=== PATIENT | male | born 1990 | race Caucasian/White ===

== ENCOUNTER 2020-03-16 12:21 | Emergency (ER) | payer OTHER, SELFPAY ==
[2020-03-16 12:22] VITALS: BP 142/83; PULSE 81; RESP 16; TEMP 37.2; O2SAT 99; BMI 25.2
--- NOTE | 2020-03-16 12:42 | EKG12_ITS ---
Test Reason : Blood Pressure : / mmHG Vent. Rate : 070 BPM Atrial Rate : 070 BPM P-R Int : 128 ms QRS Dur : 088 ms QT Int : 380 ms P-R-T Axes : 049 066 048 degrees QTc Int : 410 ms Normal sinus rhythm with sinus arrhythmia Normal ECG Confirmed by ALEC ESPAÑA, MAY ([id number]), newspaper photo editor RUIZ BOLTON ([id number]) on 03/20/2020 10:59:29 AM Referred By: GABBIE Confirmed By:MAY MICHAEL MD
[2020-03-16 12:49] VITALS: BP 121/78; PULSE 84; RESP 19; TEMP 37.2; O2SAT 97
[2020-03-16] MEDS: 0.9% Normal Saline 1,000 ML 1000 ML IV (12:56)
[2020-03-16 13:03] LABS: Absolute Lymphocyte Count 1.44 X10^3/uL (0.83-4.51); Basophil# 0.03 X10^3/uL; Basophil% 0.6 % (0-1); Eosinophil# 0.07 X10^3/uL; Eosinophils% 1.4 % (0-5); Hematocrit 40.4 % (40-54); Hemoglobin 13.9 g/dL (13.0-16.5); Lymphocyte # 1.44 X10^3/ul (4.0); Lymphocyte % 29.4 % (19-41); Mean Corp Hgb Conc 34.4 g/dL (32-36); Mean Corpuscular Hgb 30.4 pg (27.0-32.0); Mean Corpuscular Volume 88.4 fL (80-94); Mean Platelet Vol. 10.9 fl (6.2-12.0); Monocyte# 0.34 X10^3/uL; NRBC Flagged by Analyzer 0 % (0-5); Neutrophil % 61.4 % (47-70); Platelet Count 179 K/mm3 (150-450); RBC Distribution Width CV 11.9 % (11.6-14.6); RBC Distribution Width SD 37.9 fl (35.1-43.9); Red Blood Count 4.57 M/mm3 (4.6-6.2); White Blood Count 4.9 K/mm3 (4.4-11.0)
[2020-03-16 13:12] LABS: ALB/GLOB Ratio 1.1 RATIO (0.9-2.4); AST(SGOT) 23 U/L (15-37); Alanine Aminotransfer ALT/SGPT 36 U/L (16-61); Albumin, Serum 3.8 g/dL (3.2-5.0); Alkaline Phosphatase 69 U/L (45-117); Anion Gap 5 (5-15); BUN 20 mg/dL (7-18); BUN/Creat Ratio 17.5 RATIO (10-20); Calcium,Total 8.3 mg/dL (8.5-10.1); Chloride 109 mmol/L (98-107); Creatinine, Serum 1.14 mg/dL (0.70-1.30); EST Glomerular Filtration Rate 79 mL/min (>60); Est Glom Filt Rate - Afr Amer 96 mL/min (>60); Estimated Creatinine Clearance 96.05 ml/min; Globulin 3.4 g/dL (2.2-4.2); Glucose 115 mg/dL (74-106); Magnesium 1.9 mg/dL (1.6-2.6); Potassium 3.5 mmol/L (3.5-5.1); Protein, Total 7.2 g/dL (6.4-8.2); Sodium Level 141 mmol/L (136-145)
[2020-03-16 13:29] VITALS: BP 129/71; BP 130/83; BP 141/80; PULSE 101; PULSE 64; PULSE 77
[2020-03-16 13:30] VITALS: BP 131/83; PULSE 64; RESP 19; TEMP 36.7; O2SAT 96
--- NOTE | 2020-03-16 13:52 | ED.VIS.GEN ---
History of Present Illness Chief Complaint: Nausea/Vomiting/Diarrhea Narrative: Patient presenting for evaluation secondary to diarrhea. Patient is an otherwise healthy 30-year-old that recently recovered from a coronavirus infection. Patient reports that his only symptoms with coronavirus were diarrhea. Patient tells me that on Friday he started to have some uneasiness of his stomach, and then he redeveloped diarrhea. Patient reports that he was having profuse watery diarrhea Friday night, took a large amount of Imodium and had cessation of the diarrhea on Friday. Patient tells me today that he is having some abdominal cramping, and was so lightheaded at work that he almost passed out. Patient drank a bunch of fluids, and was given a liter of fluids by the squad, and was brought to the emergency department. Patient denies any chest pain or palpitations associated with this. No fevers associated with this. No cough. Review of systems otherwise negative. Past Medical History - Allergies and Home Meds Allergies/Adverse Reactions: Allergies No Known Allergies Allergy (Verified 03/18/16 18:30) Primary Care Physician: JOSE KULKARNI [Other] Prior records reviewed: Yes Past Medical History: - - IBS Smoking Status: Never smoker Drugs: None Review of Systems All systems negative except as indicated General: Reports: - - Lightheadedness Eyes: Denies: Visual changes - bilaterally, Diplopia ENT: Denies: Rhinorrhea, Sore throat Cardiovascular: Denies: Chest pain, Palpitations Respiratory: Denies: Dyspnea, Cough, Dyspnea on exertion Gastrointestinal: Reports: Abdominal pain, Diarrhea Genitourinary: Denies: Dysuria, Hematuria, Frequency Musculoskeletal: Denies: Back pain, Extremity Pain Skin: Denies: Rash, Wounds Neurological: Denies: Headache, Weakness, Numbness Physical Exam Vital Signs/Narrative: Vital Signs Temp Pulse Pulse Pulse Pulse Resp BP 03/16/20 13:30 98.1 F 64 19 H 131/83 H 03/16/20 13:29 77 64 101 H 03/16/20 12:49 99 F 84 19 H 121/78 H 03/16/20 12:22 99 F 81 16 142/83 H BP BP BP Pulse Ox 03/16/20 13:30 96 03/16/20 13:29 129/71 H 130/83 H 141/80 H 03/16/20 12:49 97 03/16/20 12:22 99 Inital Vital Signs reviewed: Yes General: Well nourished, Well developed, No Acute Distress Head: Normocephalic, Atraumatic Eyes: Perrl, EOMI ENT: Moist mucous membranes, No rhinorrhea Neck: Supple, Nontender Cardiovascular: Regular rate, Regular rhythm, No murmurs Respiratory: No distress, CTA bilaterally, Chest nontender Abdomen: Soft, Nontender, Nondistended, Normal bowel sounds Back: Nontender, Normal Inspection Extremities: Nontender, No edema Skin: Normal color, No rash Neurological: Alert, Oriented x3, Cranial nerves II-XII grossly intact, Normal Strength, Normal Sensation Psychological: Normal affect, Normal Mood Diagnostic/Tx/Re-eval Laboratory Data 03/16/20 03/16/20 12:21 12:21 WBC 4.9 RBC 4.57 L Hgb 13.9 Hct 40.4 MCV 88.4 MCH 30.4 MCHC 34.4 RDW Std Deviation 37.9 RDW Coeff of Kory 11.9 Plt Count 179 MPV 10.9 Immature Gran % (Auto) 0.200 Neut % (Auto) 61.4 Lymph % (Auto) 29.4 [place] % (Auto) 7.0 Eos % (Auto) 1.4 Baso % (Auto) 0.6 Absolute Neuts (auto) 3.0 Absolute Lymphs (auto) 1.44 Nucleated RBC % 0 Sodium 141 Potassium 3.5 Chloride 109 H Carbon Dioxide 27.0 Anion Gap 5 BUN 20 H Creatinine 1.14 Estim Creat Clear Calc 96.05 Est GFR (MDRD) Af Amer 96 Est GFR (MDRD) Non-Af 79 BUN/Creatinine Ratio 17.5 Glucose 115 H Calcium 8.3 L Magnesium 1.9 Total Bilirubin 0.50 AST 23 ALT 36 Alkaline Phosphatase 69 Troponin I < 0.015 Total Protein 7.2 Albumin 3.8 Globulin 3.4 Albumin/Globulin Ratio 1.1 - EKG Initial EKG Interpretation: - - Sinus rhythm at 70 with sinus arrhythmia, isoelectric ST segments normal T waves normal MT and QTc intervals no evidence of WPW or Brugada morphology. - Medical Decision Making Patient presented secondary to lightheadedness in the setting of recent diarrheal illness. I did send a repeat coronavirus test on this patient. Lab work was found to be unremarkable, patient had improvement with fluid resuscitation. Patient at this point potentially could have a different viral illness resulting in diarrhea, his coronavirus test is pending. Patient was discharged with supportive care instructions, we will call him with the results of his coronavirus test. ED Disposition - Plan for ED Patient: Disposition: Home or Assisted Living Diagnosis: Diarrhea Instructions: ED Viral Gastroenteritis Referrals: JOSE KULKARNI [Other] - As Needed
[2020-03-16 14:01] VITALS: BP 135/77; PULSE 62; RESP 15; TEMP 36.6; O2SAT 97
== END 2020-03-16 14:05 | disposition home or self-care (01) ==
PROVIDERS: Emergency Provider Emergency Medicine
DX: R19.7 Diarrhea, unspecified (principal)
CPT/HCPCS: 80053; 83735; 84484; 85025; 87635; 93005; 96360; 99285; G2023; A4216; U0003

== ENCOUNTER 2020-11-06 10:32 | Outpatient (RCR) | payer OTHER, SELFPAY ==
[2020-11-06] MEDS: COVID-19 VACC, MRNA(PFIZER)/PF 30 MCG/0.3 ML SYRINGE IM (12:24)
[2020-11-28] MEDS: COVID-19 VACC, MRNA(PFIZER)/PF 30 MCG/0.3 ML SYRINGE IM (10:03)
== END 2021-02-06 23:59 ==
LOC: IMMUN 10:32
PROVIDERS: Visit Provider Family Medicine
DX: Z23 Encounter for immunization (principal)
CPT/HCPCS: 0001A; 0002A; 91300